=== PATIENT | male | born 1950 | race Caucasian/White ===

== ENCOUNTER 2020-06-18 23:59 | Emergency (ER) | payer MEDICARE ==
[2020-06-19 00:13] VITALS: BP 120/65; PULSE 77
--- NOTE | 2020-06-19 00:35 | EDM.PDOC ---
ED HPI GENERAL MEDICAL PROBLEM - General Chief Complaint: Lower Extremity Injury/Pain Stated Complaint: MEDICAL [facility] Time Seen by Provider: 06/19/20 00:10 Source of Information: Reports: Patient, EMS History Limitations: Reports: No Limitations - History of Present Illness INITIAL COMMENTS - FREE TEXT/NARRATIVE: 70-year-old male who had a hip surgery on the right side 5 days ago, noticed tonight that he had significant increase in swelling throughout his entire right leg. Also some increased bruising along the lateral aspect. No increased pain, no fevers or chills. Onset: Gradual Location: Reports: Lower Extremity, Right Associated Symptoms: Reports: No Other Symptoms. Denies: Chest Pain, Nausea/Vomiting, Shortness of Breath Right Thigh Pain Score (Numeric/FACES): 6 - Related Data Allergies Allergy/AdvReac Type Severity Reaction Status Date / Time No Known Allergies Allergy Verified 06/19/20 00:01 Home Meds: Home Meds Cholecalciferol (Vitamin D3) [Vitamin D] 1,000 units PO DAILY 12/11/15 [History] Lisinopril 20 mg PO DAILY 12/11/15 [History] Metoprolol Succinate [Toprol XL] 25 mg PO DAILY 12/11/15 [History] Simvastatin [Zocor] 40 mg PO DAILY 12/11/15 [History] metFORMIN [Glucophage] 1,000 mg PO BIDMEALS 12/11/15 [History] Tamsulosin HCl 0.4 mg PO DAILY 09/21/17 [History] Dulaglutide [Trulicity] 1.5 mg SQ Q7D 01/10/20 [History] glipiZIDE [Glucotrol] 10 mg PO BIDMEALS 01/10/20 [History] Acetaminophen [Tylenol] 650 mg PO ASDIRECTED PRN 06/19/20 [History] Aspirin [Aspirin EC] 325 mg PO BID 06/19/20 [History] Hydrocodone/Acetaminophen [Hydrocodon-Acetaminophn 10-325] 1 tab PO ASDIRECTED 06/19/20 [History] Pantoprazole [ProTONIX] 20 mg PO DAILY 06/19/20 [History] Sennosides/Docusate Sodium [Senna-Docusate Sodium Tablet] 2 tab PO BID 06/19/20 [History] Past Medical History HEENT History: Reports: Hard of Hearing, Impaired Vision Cardiovascular History: Reports: Hypertension, Other (See Below) Other Cardiovascular History: Septal wall defect at 8 mos old. Musculoskeletal History: Reports: Osteoarthritis Endocrine/Metabolic History: Reports: Diabetes, Type II, Obesity/BMI 30+ - Infectious Disease History Infectious Disease History: Reports: Chicken Pox, Measles, Mumps - Past Surgical History Cardiovascular Surgical History: Reports: Other (See Below) Other Cardiovascular Surgeries/Procedures: Septal wall repair at 8 mos old. GI Surgical History: Reports: Colonoscopy, Hernia, Abdominal Musculoskeletal Surgical History: Reports: Hip Replacement, Knee Replacement, Other (See Below) Other Musculoskeletal Surgeries/Procedures:: right hip replacement 06/15/20 Social & Family History - Tobacco Use Tobacco Use Status *Q: Never Tobacco User Second Hand Smoke Exposure: No - Caffeine Use Caffeine Use: Reports: Soda - Recreational Drug Use Recreational Drug Use: No Review of Systems - Review of Systems Review Of Systems: See Below Constitutional: Denies: Fever Respiratory: Denies: Shortness of Breath Cardiovascular: Denies: Chest Pain Skin: Reports: Bruising (Right hip postsurgical) Neurological: Reports: No Symptoms ED EXAM, GENERAL - Physical Exam Exam: See Below Exam Limited By: No Limitations General Appearance: Alert, No Apparent Distress Respiratory/Chest: No Respiratory Distress, Lungs Clear Cardiovascular: Regular Rate, Rhythm. No: Tachycardia Extremities: Other (Right lower extremity does have diffuse pitting edema from the groin through the foot, there is some bruising on the lateral hip postsurgical.) Neurological: Alert, Oriented Course - Vital Signs Last Recorded V/S: Last Vital Signs Temp 97.0 F 06/19/20 00:04 Pulse 77 06/19/20 00:04 Resp 14 06/19/20 00:04 BP 120/65 06/19/20 00:04 Pulse Ox 96 06/19/20 00:04 - Re-Assessments/Exams Free Text/Narrative Re-Assessment/Exam: 06/19/20 00:35 Patient is here to rule out DVT so an ultrasound was ordered. 06/19/20 01:27 DVT study was negative, patient was given two 6 inch Jose A wraps to put some pressure on the lower extremity, and encouraged to elevate the leg. Departure - Departure Time of Disposition: 02:46 Disposition: Home, Self-Care 01 Clinical Impression: Edema of right lower extremity - Discharge Information Instructions: Edema Referrals: PCP,None [Primary Care Provider] - Forms: ED Department Discharge Care Plan Goals: Use Jose A wrap for extra pressure on the leg and elevate when able. Follow-up w ith your surgeon as scheduled. No change in medications. Sepsis Event Note (ED) - Evaluation Sepsis Screening Result: No Definite Risk
--- NOTE | 2020-06-19 08:40 | US ---
VL Duplex Lwr Ext Veins Ltd Rt INDICATION: rule out dvt post surgery FINDINGS: Ultrasound examination of the lower extremity using Doppler and compressive technique demonstrates that the common femoral, femoral, and popliteal veins are patent, and negative for thrombus. The calf veins were segmentally visualized and are negative where seen. IMPRESSION: Negative for deep venous thrombosis.
== END 2020-06-19 01:35 | disposition home or self-care (01) ==
LOC: JP.ED 23:59
DX: R60.0 Localized edema (principal); I10 Essential (primary) hypertension; M19.90 Unspecified osteoarthritis, unspecified site; E11.9 Type 2 diabetes mellitus without complications; E66.9 Obesity, unspecified; Z68.37 Body mass index [BMI] 37.0-37.9, adult; Z79.82 Long term (current) use of aspirin; Z79.84 Long term (current) use of oral hypoglycemic drugs
CPT/HCPCS: 93971-26; 93971-RT; 99282; 99284-25